=== PATIENT | male | born 1990 | race Caucasian/White ===

== ENCOUNTER 2018-02-25 15:29 | Emergency (ER) | payer OTHER ==
[2018-02-25] MEDS ORDERED: Albuterol/Ipratropium 3.0-0.5 MG/3 ML Neb Soln NEB ONE (15:50)
[2018-02-25] MEDS ORDERED: predniSONE 20 MG Tab PO ONE (15:51)
--- NOTE | 2018-02-25 15:55 | EDM.PDOC ---
ED HPI GENERAL MEDICAL PROBLEM - General Chief Complaint: Respiratory Problem Stated Complaint: TROUBLE BREATHING Time Seen by Provider: 02/25/18 15:50 Source of Information: Reports: Patient History Limitations: Reports: No Limitations - History of Present Illness INITIAL COMMENTS - FREE TEXT/NARRATIVE: 27-year-old male presents to the ED with dyspnea due to asthma. Patient states she's been asthmatic since he was a child. He states he's currently working in the [employer]. He knows he is allergic cotton wood which is running rampant at this point time. Pollen counts [place] are very high at this point in time. He states over the last 3-4 days his asthma is gradually worsened. He was up at night the last 3 nights trying to get his breath. Typically he'll go into the bathroom and turned on the steam until he can breathe a little easier. He states he hasn't had use any inhalers since he was age 22 which is 5 years ago. He has a productive cough of mostly clear sputum. Denies fever or chills. States his nose is very occluded as well with rhinorrhea from allergy. Onset: Gradual Onset Date: 02/18/18 (Toes are gradually worsening over the last week.) Duration: Day(s): Location: Reports: Face (Nasal rhinitis. This is from allergy), Chest Quality: Reports: Other (Allergic rhinitis with rhinorrhea and trouble breathing due to asthma) Severity: Moderate Improves with: Reports: None Worsens with: Reports: Other (Working outside and exposure to allergens and pollens.) Context: Denies: Activity, Exercise, Lifting, Sick Contact, Trauma, Other Associated Symptoms: Reports: Cough, cough w sputum. Denies: No Other Symptoms , Confusion (Sputum is usually white or clear.), Chest Pain, Diaphoresis, Fever/ Chills, Headaches, Loss of Appetite, Malaise, Nausea/Vomiting, Rash, Seizure, Shortness of Breath, Syncope, Weakness Treatments VERIFICATION ENGINEER: Reports: Other (see below) Chest Pain Score (Numeric/FACES): 5 - Related Data Allergies Allergy/AdvReac Type Severity Reaction Status Date / Time No Known Allergies Allergy Verified 02/25/18 15:38 Home Meds: Home Meds Albuterol [Proventil HFA] 200 puff INH Q4H #1 inhaler 02/25/18 [Rx] Triamcinolone Acetonide [Nasacort AQ [place]] 16.5 gm .XX DAILY #1 spray 02/25/18 [Rx] predniSONE [Prednisone] 20 mg PO ASDIRECTED #18 tablet 02/25/18 [Rx] Past Medical History Respiratory History: Reports: Asthma - Past Surgical History GI Surgical History: Reports: Hernia, Abdominal Social & Family History - Tobacco Use Smoking Status *Q: Current Every Day Smoker Years of Tobacco use: 4 Packs/Tins Daily: 0.4 - Caffeine Use Caffeine Use: Reports: Coffee, Energy Drinks, Tea - Recreational Drug Use Recreational Drug Use: No - Living Situation & Occupation Occupation: Employed ED ROS GENERAL - Review of Systems Review Of Systems: See Below Constitutional: Denies: Fever, Chills, Malaise, Weakness, Weight Loss HEENT: Reports: Rhinitis. Denies: Glasses Respiratory: Reports: Shortness of Breath, Wheezing, Cough, Sputum. Denies: Pleuritic Chest Pain Cardiovascular: Reports: No Symptoms (Usually white or clear.) Endocrine: Reports: No Symptoms GI/Abdominal: Reports: No Symptoms : Reports: No Symptoms Musculoskeletal: Reports: No Symptoms Skin: Reports: No Symptoms Neurological: Reports: No Symptoms Psychiatric: Reports: No Symptoms Hematologic/Lymphatic: Reports: No Symptoms ED EXAM, GENERAL - Physical Exam Exam: See Below Exam Limited By: No Limitations General Appearance: Alert, WD/WN, Mild Distress (Audible wheezing evident. Respiratory rate is 22/m sats are 94-96%) Eye Exam: Bilateral Eye: Normal Inspection Ears: Normal TMs Throat/Mouth: Normal Inspection, Normal Lips, Normal Teeth, Normal Oropharynx Head: Atraumatic, Normocephalic Neck: Normal Inspection, Supple, Non-Tender, Full Range of Motion. No: Lymphadenopathy (L), Lymphadenopathy (R) Respiratory/Chest: No Accessory Muscle Use, Wheezing. No: Lungs Clear, Normal Breath Sounds, Chest Non-Tender, Respiratory Distress, Crackles, Rales, Rhonchi (Diffuse audible wheezing from all 5 lung wasserman.) Cardiovascular: Normal Peripheral Pulses, Regular Rate, Rhythm, No Edema, No Gallop, No Murmur, No Rub Course - Vital Signs Last Recorded V/S: Last Vital Signs Temp 36.2 C 02/25/18 15:34 Pulse 76 02/25/18 15:34 Resp 20 02/25/18 15:34 BP 127/80 02/25/18 15:34 Pulse Ox 94 L 02/25/18 15:57 - Orders/Labs/Meds Orders: Active Orders 24 hr Category Date Time Status RT Aerosol Therapy [RC] ASDIRECTED Care 02/25/18 15:50 Active Meds: Medications Discontinued Medications Generic Name Dose Route Start Last Admin Trade Name Jeff PRN Reason Stop Dose Admin Albuterol/Ipratropium 3 ml 02/25/18 15:50 02/25/18 15:56 Duoneb 3.0-0.5 Mg/3 Ml NEB 02/25/18 15:51 3 ml ONETIME ONE Administration Prednisone 30 mg 02/25/18 15:51 02/25/18 16:28 Prednisone PO 02/25/18 15:52 30 mg ONETIME ONE Administration - Radiology Interpretation Free Text/Narrative:: 27-year-old male presents to the ED with an acute exacerbation of his asthma. Patient states he's been asthmatic since a child. He states for the last 5 years however his working conditions allowed him to be inside for the most part and not exposed to a lot of pollens. She's been working in [employer] this year he 's been exposed to a lot more pollens and outdoor allergens. He states for the last week his asthma symptoms have increased in intensity where he is wheezing at all times. He had to quit work early today because he could not keep get his breath. S3 5 nights short of breath and wheezing. He does not have any inhalers at this time and hasn't used one for 5 years. Plan DuoNeb at this time prednisone 30 mg by mouth. - Re-Assessments/Exams Free Text/Narrative Re-Assessment/Exam: 02/25/18 16:50: Patient was reexamined. He has no further wheezing. He feels like and get a full deep breath this time. Plan I'm going to place him on prednisone 20 mg twice a day with breakfast and supper for 6 days and then 1 tablet in the morning for further 6 days as this will help with his seasonal allergies his allergic rhinitis and his current exacerbation of asthma. I did write a prescription for pro-air inhaler which he used 2 puffs every 3-4 hours as needed for shortness of breath and/or wheezing. Repeat 3. I also advised him to purchase Nasacort AQ 2 squirts to each side of his nose at bedtime until seasonal allergy season is over. He will follow-up if he develops asthma symptoms after his prednisone is done. If he has to use his inhaler more than 3 times a day or ever has to wake up in the night to use his inhaler he will needs to return to medical care for a steroid inhaler. Departure - Departure Time of Disposition: 16:47 Disposition: Home, Self-Care 01 Condition: Fair Clinical Impression: Acute exacerbation of asthma with allergic rhinitis - Discharge Information Prescriptions: Albuterol [Proventil HFA] 200 puff INH Q4H #1 inhaler predniSONE [Prednisone] 20 mg PO ASDIRECTED #18 tablet Triamcinolone Acetonide [Nasacort AQ [place]] 16.5 gm .XX DAILY #1 spray Instructions: Asthma, Adult, Allergic Rhinitis, Adult Referrals: PCP,None [Primary Care Provider] - Forms: ED Department Discharge Additional Instructions: Evaluation the emergent today in regards to acute exacerbation of your asthma primarily due to seasonal allergies and a high pollen counts in [place] this time of year. You were found to be significantly wheezing with oxygen levels of 94-96% on room air. Associated allergic rhinitis with persistent nasal secretions clear you're treated in the ED with inhalational medication DuoNeb. Also initial dose of prednisone 30 mg was given by mouth. Treatment at home is to use albuterol or Pro-air handheld inhaler 2 puffs every 3-4 hours as needed for shortness of breath and or wheezing. Prednisone course 20 mg twice daily breakfast and supper for the next 6 days and then 1 tablet in the morning only for another 6 days. Also suggest picking up some Nasacort AQ nasal spray 2 squirts to each side of your nose at bedtime to control allergic rhinitis. See what happens over the next couple of weeks. If symptoms of rhinitis and asthma worsen after finishing up the course of prednisone and you will need to be placed on a steroid inhaler as well to bring your asthma under control. This is particularly important if you need your inhaler more than 3 times in a day or you have to wake up in the nighttime to use an inhaler for asthma relief. - My Orders Last 24 Hours: My Active Orders 02/25/18 15:50 RT Aerosol Therapy [RC] ASDIRECTED - Assessment/Plan Last 24 Hours: My Active Orders 02/25/18 15:50 RT Aerosol Therapy [RC] ASDIRECTED
== END 2018-02-25 17:02 | disposition home or self-care (01) ==
LOC: JD.ED 15:29
DX: J45.901 Unspecified asthma with (acute) exacerbation (principal); F17.210 Nicotine dependence, cigarettes, uncomplicated
CPT/HCPCS: 94640; 99285; A9270; 99284

== ENCOUNTER 2018-02-28 01:19 | Emergency (ER) | payer OTHER ==
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
--- NOTE | 2018-03-01 07:27 | CT ---
Head CT Technique: Multiple axial sections through the brain were obtained. Intravenous contrast was not utilized. Comparison: No prior head CT exam. Findings: Ventricles along with basal cisterns and sulci over the convexities are within normal limits for the patient's age. No abnormal parenchymal densities are seen. No evidence of intracranial hemorrhage. No midline shift or mass effect is seen. No acute calvarial abnormality is seen. Visualized sinuses are clear. Minimal soft tissue swelling with soft tissue air seen within the posterior parietal scalp. Impression: 1. Minimal soft tissue swelling with soft tissue air seen within the right parietal scalp. 2. No acute intracranial abnormality is seen. No skull fracture is identified. Diagnostic code #3 I agree with preliminary report from [facility], finalized at 02/28/18, 4:38 AM Central Time
== END 2018-02-28 04:04 | disposition home or self-care (01) ==
LOC: JD.ED 01:19
DX: S06.9X9A Unspecified intracranial injury with loss of consciousness of unspecified duration, initial encounter (principal); S01.01XA Laceration without foreign body of scalp, initial encounter; S13.9XXA Sprain of joints and ligaments of unspecified parts of neck, initial encounter; F17.210 Nicotine dependence, cigarettes, uncomplicated; Y04.8XXA Assault by other bodily force, initial encounter; Z88.0 Allergy status to penicillin
CPT/HCPCS: 12002; 70450; 70450-26; 99284-25; 99285-25